=== PATIENT | male | born 1990 | race Caucasian/White ===

== ENCOUNTER → 2020-05-30 | Outpatient (CLI) | payer MEDICARE, OTHER | END | disposition home or self-care (01) | LOC: LAB 20:54 → LAB SHORT 20:54 | DX: L02.91 Cutaneous abscess, unspecified (principal) | CPT/HCPCS: 87070; 87075; 87205 ==

== ENCOUNTER 2021-06-10 10:48 | Emergency (ER) | payer OTHER ==
[~2021-06-10] VITALS: Ht 182.9 cm; Wt 76.7 kg
[2021-06-10] MEDS ORDERED: PAXIL40 M1 PO (12:17)
== END 2021-06-10 14:05 | disposition home or self-care (01) ==
LOC: ER 10:48
DX: G24.09 Other drug induced dystonia (principal); T43.225A Adverse effect of selective serotonin reuptake inhibitors, initial encounter
CPT/HCPCS: 99284; A9270